=== PATIENT | male | born 1975 | race Caucasian/White ===

== ENCOUNTER 2023-12-16 14:20 | Emergency (ER) | payer OTHER ==
[2023-12-16] MEDS ORDERED: FAMOTIDINE 20 MG/2 ML VIAL IV ONE (14:51)
[2023-12-16] MEDS ORDERED: THIAMINE 200 MG/2 ML INJ ONE (14:51)
[2023-12-16] MEDS ORDERED: NA CHLORIDE 0.9% 1,000 ML ONE (14:51)
[2023-12-16] MEDS ORDERED: ONDANSETRON 4 MG/2 ML VIAL ONE (14:51)
--- NOTE | 2023-12-16 14:51 | RAD REPORT ---
EXAM DESCRIPTION: RAD - Chest Single View - 12/16/2023 2:46 pm CLINICAL HISTORY: COUGH COMPARISON: <Comparisons> FINDINGS: Lines: None. Lungs: No evidence of edema or pneumonia. Pleural: No significant pleural effusions or pneumothorax. Cardiac: The heart size is within normal limits. Mediastinum: Within normal limits. Bones: No acute fractures. Other: None IMPRESSION: No acute cardiopulmonary disease.
[2023-12-16 14:56] LABS: Absolute Lymphocytes (CBC) 0.2 K/uL (0.7-4.9); Absolute Monocytes 0.3 K/uL (0.1-1.3); Absolute Neutrophil 5.8 K/uL (1.8-8.0); Basophils % 0.2 % (0-1.3); Eosinophils % 0.4 % (0-4.4); Hematocrit 42.6 % (39.6-49.0); Hemoglobin 14.7 g/dL (13.6-17.9); Lymphocytes % 3.8 % (15.3-44.8); MCH 40.6 pg (27.0-35.0); MCHC 34.5 g/dL (32.0-36.0); MCV 117.8 fL (80-100); MPV 6.8 fL (7.6-11.3); Monocytes % 5.1 % (3.3-12.3); Neutrophils % 90.5 % (41.7-73.7); Platelets 106 thou/uL (152-406); RBC Red Blood Cell Count 3.62 M/uL (4.33-5.43); Red Cell Distribution Width 16.1 % (12.1-15.2)
[2023-12-16 15:00] LABS: Blood Morphology Comment NOTED (NOT SEEN); Macrocytosis 3+; PT Prothrombin Time 12.4 SECONDS (9.4-12.5); PTT, Activated Partial Thromb 34.6 SECONDS (24.3-36.9); Platelet Estimate DECR; Protime INR 1.13; White Blood Cell Scan OK (OK)
[2023-12-16 15:11] LABS: ALT/SGPT 113 U/L (16-61); AST/SGOT 181 U/L (15-37); Albumin 3.5 g/dL (3.4-5.0); Alkaline Phosphatase 80 U/L (45-117); Anion Gap 14.2 mEq/L (5.0-15.0); BUN Blood Urea Nitrogen 7 mg/dL (7-18); Bicarbonate 24 mEq/L (21-32); Bilirubin Direct 0.9 mg/dL (0-0.2); Bilirubin Indirect, Calculated 1.7 mg/dL (0.2-0.8); Bilirubin Total 2.6 mg/dL (0.2-1.0); Globulin 3.4 g/dL (2.3-3.5); Glomerular Filtration Rate 108 ml/min (=/>90); Glucose Level 114 mg/dL (74-106); Magnesium 1.2 mg/dL (1.6-2.4); NT PRO-BNP 51 pg/mL (<125); Potassium 3.2 mEq/L (3.5-5.1); Protein, Total 6.9 g/dL (6.4-8.2); Sodium Level 138 mEq/L (136-145); Troponin High Sensitivity 5.5 pg/mL (<58.9)
[2023-12-16] MEDS ORDERED: Magnesium Sulfate 2gm IVPB 2 G/50 ML BAG IV ONE (16:35)
--- NOTE | 2023-12-16 16:56 | EDPHYS ---
Physician Documentation [facility] Name: Sherry Troy Age: 48 yrs Sex: Male : 1975 Arrival Date: 12/16/2023 Time: 14:20 Bed 23 Private MD: BOYD Physician Olvin Leonard HPI: 12/15 16:15 This 48 yrs old Male presents to ER via EMS with complaints of michael Nausea/Vomiting. 16:15 The patient presents to the emergency department with nausea, vomiting, that is michael intermittent. 16:20 Possible causes: in the heat, heavy etoh. The symptoms are aggravated by alcohol, The michael symptoms are alleviated by remaining still. Associated signs and symptoms: Pertinent positives: nausea, vomiting. Severity of symptoms: At their worst the symptoms were moderate in the emergency department the symptoms are unchanged. The patient has experienced similar episodes in the past, a few times. 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 - Infectious Disease History:: Denies. - Social history:: Patient uses alcohol, on a daily basis. Smoking status: Patient denies any tobacco usage or history of. ROS: 16:18 Constitutional: Negative for fever, chills, and weight loss, Eyes: Negative for injury, michael pain, redness, and discharge, ENT: Negative for injury, pain, and discharge, Neck: Negative for injury, pain, and swelling, Cardiovascular: Negative for chest pain, palpitations, and edema, Respiratory: Negative for shortness of breath, cough, wheezing, and pleuritic chest pain, Back: Negative for injury and pain, : Negative for injury, bleeding, discharge, and swelling, MS/Extremity: Negative for injury and deformity, Skin: Negative for injury, rash, and discoloration, Neuro: Negative for headache, weakness, numbness, tingling, and seizure, Psych: Negative for depression, anxiety, suicide ideation, homicidal ideation, and hallucinations, Allergy/Immunology: Negative for hives, rash, and allergies, Endocrine: Negative for neck swelling, polydipsia, polyuria, polyphagia, and marked weight changes, Hematologic/Lymphatic: Negative for swollen nodes, abnormal bleeding, and unusual bruising, 16:18 Abdomen/GI: Positive for nausea and vomiting, Exam: 16:18 Constitutional: This is a well developed, well nourished patient who is awake, alert, michael and in no acute distress. Head/Face: Normocephalic, atraumatic. Eyes: Pupils equal round and reactive to light, extra-ocular motions intact. Lids and lashes normal. Conjunctiva and sclera are non-icteric and not injected. Cornea within normal limits. Periorbital areas with no swelling, redness, or edema. ENT: Nares patent. No nasal discharge, no septal abnormalities noted. Tympanic membranes are normal and external auditory canals are clear. Oropharynx with no redness, swelling, or masses, exudates, or evidence of obstruction, uvula midline. Mucous membranes moist. Neck: Trachea midline, no thyromegaly or masses palpated, and no cervical lymphadenopathy. Supple, full range of motion without nuchal rigidity, or vertebral point tenderness. No Meningismus. Chest/axilla: Normal chest wall appearance and motion. Nontender with no deformity. No lesions are appreciated. Cardiovascular: Regular rate and rhythm with a normal S1 and S2. No gallops, murmurs, or rubs. Normal PMI, no JVD. No pulse deficits. Respiratory: Lungs have equal breath sounds bilaterally, clear to auscultation and percussion. No rales, rhonchi or wheezes noted. No increased work of breathing, no retractions or nasal flaring. Abdomen/GI: Soft, non-tender, with normal bowel sounds. No distension or tympany. No guarding or rebound. No evidence of tenderness throughout. Back: No spinal tenderness. No costovertebral tenderness. Full range of motion. Male : Normal genitalia with no discharge or lesions. Skin: Warm, dry with normal turgor. Normal color with no rashes, no lesions, and no evidence of cellulitis. MS/ Extremity: Pulses equal, no cyanosis. Neurovascular intact. Full, normal range of motion. Neuro: Awake and alert, GCS 15, oriented to person, place, time, and situation. Cranial nerves II-XII grossly intact. Motor strength 5/5 in all extremities. Sensory grossly intact. Cerebellar exam normal. Normal gait. Psych: Awake, alert, with orientation to person, place and time. Behavior, mood, and affect are within normal limits. 16:18 ECG was reviewed by the Attending Physician. Vital Signs: 14:33 BP 168 / 70; Pulse 105; Resp 19; Temp 96.8; Pulse Ox 95% on R/A; iw 15:41 BP 121 / 78; Pulse 86; Resp 18; Pulse Ox 98% on R/A; ld1 MDM: 14:22 Patient medically screened. [facility] 12/15 14:24 Order name: Basic Metabolic Panel; Complete Time: 15:54 [facility] 12/15 14:24 Order name: CBC with Diff; Complete Time: 15:54 [facility] 12/15 14:24 Order name: LFT's; Complete Time: 15:54 [facility] 12/15 14:24 Order name: Magnesium; Complete Time: 15:54 [facility] 12/15 14:24 Order name: NT PRO-BNP; Complete Time: 15:54 [facility] 12/15 14:24 Order name: PT-INR; Complete Time: 15:54 [facility] 12/15 14:24 Order name: Troponin HS; Complete Time: 15:54 [facility] 12/15 14:24 Order name: Acetaminophen; Complete Time: 15:54 [facility] 12/15 14:24 Order name: ETOH Level; Complete Time: 15:54 [facility] 12/15 14:24 Order name: Ptt, Activated; Complete Time: 15:54 [facility] 12/15 14:24 Order name: Salicylate; Complete Time: 15:54 [facility] 12/15 14:24 Order name: Urinalysis w/ reflexes [facility] 12/15 14:24 Order name: Urine Drug Screen [facility] 12/15 15:00 Order name: CBC Smear Scan; Complete Time: 15:54 [facility] 12/15 17:25 Order name: Urine Culture [facility] 12/15 14:24 Order name: XRAY Chest (1 view); Complete Time: 15:54 [facility] 12/15 14:24 Order name: EKG; Complete Time: 14:25 [facility] 12/15 14:24 Order name: Cardiac monitoring; Complete Time: 14:39 [facility] 12/15 14:24 Order name: EKG - Nurse/Tech; Complete Time: 14:39 [facility] 12/15 14:24 Order name: IV Saline Lock; Complete Time: 14:38 [facility] 12/15 14:24 Order name: Labs collected and sent; Complete Time: 14:49 [facility] 12/15 14:24 Order name: O2 Per Protocol; Complete Time: 14:38 [facility] 12/15 14:24 Order name: O2 Sat Monitoring; Complete Time: 14:38 [facility] 12/15 14:24 Order name: Suicide Screening ([place]); Complete Time: 14:38 [facility] EC:18 Rate is 98 beats/min. Rhythm is regular. QRS [place] is Normal. AR interval is normal. QRS michael interval is normal. QT interval is normal. No Q waves. T waves are Normal. No ST changes noted. Clinical impression: NSR w/ Non-specific ST/T Changes and No evidence of ischemia. Interpreted by me. Reviewed by me. Administered Medications: 15:07 Drug: NS 0.9% IV 1000 ml IV at 1 bolus Per protocol; 1000 mL bolus Route: IV; Rate: 1 ld1 bolus; Site: left antecubital; 15:40 Follow up: IV Status: Completed infusion; IV Intake: 1000ml ld1 15:07 Drug: Thiamine IV 100 mg IV at per protocol once Route: IV; Rate: per protocol; Site: ld1 left antecubital; 15:07 Drug: Ondansetron IVP 4 mg IVP once; over 2 minutes Route: IVP; Site: left antecubital; ld1 15:07 Drug: Famotidine IVP 20 mg IVP once; dilute with 10 mL 0.9% NaCl; give over 2 minutes ld1 Route: IVP; Site: left antecubital; 15:40 Drug: Banana Bag - (Multivitamin IV 1 amp, NS 0.9% IV 1000 ml, Thiamine IV 100 mg, ld1 foLIC Acid IVPB 1 mg) IV at 500 ml/hr once Route: IV; Rate: 500 ml/hr; Site: left antecubital; 17:07 Drug: Magnesium Sulfate IVPB 2 grams IVPB once over 1 hrs Route: IVPB; Infused Over: 1 iw hrs; Site: left antecubital; 17:12 Drug: Potassium PO Effervescent Tablet 25 mEq PO once; dissolve in 4 ounces of water or iw juice Route: PO; Disposition Summary: 12/16/23 16:56 Discharge Ordered Notes: Location: Home michael Problem: new michael Symptoms: have improved michael Condition: Stable michael Diagnosis - Vomiting michael - Hypomagnesemia michael - Hypokalemia michael - Alcohol abuse michael - Alcohol dependence michael - Heat exhaustion, unspecified michael - Alcoholic cirrhosis of liver without ascites michael Followup: michael - With: Private Physician - When: 2 - 3 days - Reason: Recheck today's complaints, Continuance of care, Re-evaluation by your physician Followup: michael - With: Hunter Carroll DO - When: 2 - 3 days - Reason: Recheck today's complaints, Re-evaluation by your physician Followup: michael - With: Tiana Stahl MD - When: 2 - 3 days - Reason: Recheck today's complaints, Re-evaluation by your physician Discharge Instructions: - Discharge Summary Sheet michael - Alcohol Intoxication michael - Alcohol Use Disorder michael - Cirrhosis michael - Potassium Content of Foods michael - Hypomagnesemia michael - Nausea and Vomiting, Adult michael - Nausea and Vomiting, Adult, [id number] michael - Alcohol Abuse and Nutrition michael - Alcoholic Liver Disease, Ccoj-af-Reuk michael - Hypokalemia michael - Alcoholic Liver Disease michael - Vomiting, Adult michael - Alcohol Abuse and Dependence Information, Adult [facility] Forms: - Medication Reconciliation Form michael - Antibiotic Education michael - Prescription Opioid Use michael - Patient Portal Instructions [facility] - Leadership Thank You Letter [facility] Prescriptions: - ondansetron 8 mg Oral Tablet,disintegrating - take 1 tablet ORAL route every 8 to 12 hours for 5 days as needed for nausea michael and vomiting; 20 tablet; Refills: 0, Product Selection Permitted - Pepcid 20 mg Oral tablet - take 1 tablet ORAL route every 12 hours for 30 days; 60 tablet; Refills: 0, michael Product Selection Permitted - Potassium Chloride 20 meq Oral Packet - take 1 packet ORAL route once daily 1 packet in 6 (six) ounces of water or michael juice; Take after meal; 14 packet; Refills: 0, Product Selection Permitted Signatures: Dispatcher [employer] EDMS Olvin Leonard MD MD cha Williams, Irene, RN RN iw Tameka Cox RN RN ld1 Corrections: (The following items were deleted from the chart) 14:25 14:25 BASIC METABOLIC PANEL+C.LAB.BRZ ordered. EDMS EDMS 14:25 14:25 CBC+H.LAB.BRZ ordered. EDMS EDMS 14:25 14:25 HEPATIC FUNCTION+C.LAB.BRZ ordered. EDMS EDMS 14:25 14:25 MAGNESIUM+C.LAB.BRZ ordered. EDMS EDMS 14:25 14:25 PROBNP+C.LAB.BRZ ordered. EDMS EDMS 14:25 14:25 PROTIME (+INR)+COAG.LAB.BRZ ordered. EDMS EDMS 14:25 14:25 Troponin High Sensitivity+C.LAB.BRZ ordered. EDMS EDMS 14:25 14:25 ACETAMINOPHEN+C.LAB.BRZ ordered. EDMS EDMS 14:25 14:25 ETHANOL+C.LAB.BRZ ordered. EDMS EDMS 14:25 14:25 PTT, ACTIVATED+COAG.LAB.BRZ ordered. EDMS EDMS 14:25 14:25 SALICYLATE+C.LAB.BRZ ordered. EDMS EDMS 14:25 14:25 Urinalysis+U.LAB.BRZ ordered. EDMS EDMS 14:25 14:25 URINE DRUG SCREEN+UC.LAB.BRZ ordered. EDMS EDMS
--- NOTE | 2023-12-16 16:56 | ER ---
Nurse's Notes [facility] Name: Sherry Troy Age: 48 yrs Sex: Male : 1975 Arrival Date: 12/16/2023 Time: 14:20 Bed 23 Private MD: Diagnosis: Vomiting;Hypomagnesemia;Hypokalemia;Alcohol abuse;Alcohol dependence;Heat exhaustion, unspecified;Alcoholic cirrhosis of liver without ascites Presentation: 12/15 14:33 Chief complaint: EMS states: was out on a boat yesterday, today is having n/v , can't iw keep anything down. Coronavirus screen: At this time, the client does not indicate any symptoms associated with coronavirus-19. Ebola Screen: Patient negative for fever greater than or equal to 101.5 degrees Fahrenheit, and additional compatible Ebola Virus Disease symptoms Patient denies exposure to infectious person. Patient denies travel to an Ebola-affected area in the 21 days before illness onset. No symptoms or risks identified at this time. Initial Sepsis Screen: Does the patient meet any 2 criteria? No. Patient's initial sepsis screen is negative. Does the patient have a suspected source of infection? No. Patient's initial sepsis screen is negative. Risk Assessment: Do you want to hurt yourself or someone else? Patient reports no desire to harm self or others. 14:33 Method Of Arrival: EMS: [facility] iw 14:33 Acuity: MIRTHA 3 iw 14:36 Onset of symptoms was December 16, 2023. Care prior to arrival: IV initiated. 20 GA, in the iw left antecubital area, Glucose check: 91. 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 - Infectious Disease History:: Denies. - Social history:: Patient uses alcohol, on a daily basis. Smoking status: Patient denies any tobacco usage or history of. Screenin:41 [facility] ED Fall Risk Assessment (Adult) History of falling in the last 3 months, ld1 including since admission No falls in past 3 months (0 pts) Confusion or Disorientation No (0 pts) Intoxicated or Sedated No (0 pts) Impaired Gait No (0 pts) Mobility Assist Device Used No (0 pt) Altered Elimination No (0 pt) Score/Fall Risk Level 0 - 2 = Low Risk Oriented to surroundings, Maintained a safe environment, Educated pt \T\ family on fall prevention, incl call for assistance when getting out of bed, Assessed \T\ reinforced patient's understanding of fall precautions, Provided non-skid footwear, Hourly rounding (assess needs \T\ fall precautionary measures) done, Used ambulatory aids as needed (educated on \T\ assisted with), Used gait belt as appropriate. Abuse screen: Denies threats or abuse. Denies injuries from another. Nutritional screening: No deficits noted. Tuberculosis screening: No symptoms or risk factors identified. Assessment: 15:41 General: Appears in no apparent distress. comfortable, Behavior is calm, cooperative, ld1 appropriate for age. Pain: Denies pain. Neuro: Level of Consciousness is awake, alert, obeys commands, Oriented to person, place, time, situation. Cardiovascular: Capillary refill < 3 seconds Patient's skin is warm and dry. Rhythm is sinus rhythm. Respiratory: Airway is patent Respiratory effort is even, unlabored. GI: Abdomen is round non-distended, Reports nausea, vomiting. : No signs and/or symptoms were reported regarding the genitourinary system. EENT: No deficits noted. Derm: No signs and/or symptoms reported regarding the dermatologic system. Musculoskeletal: No signs and/or symptoms reported regarding the musculoskeletal system. Vital Signs: 14:33 BP 168 / 70; Pulse 105; Resp 19; Temp 96.8; Pulse Ox 95% on R/A; iw 15:41 BP 121 / 78; Pulse 86; Resp 18; Pulse Ox 98% on R/A; ld1 ED Course: 14:22 Patient arrived in ED. iw 14:22 Olvin Leonard MD is Attending Physician. michael 14:35 Triage completed. iw 14:36 Arm band placed on. iw 14:36 Maintain EMS IV. Dressing intact. Good blood return noted. Site clean \T\ dry. Gauge \T\ iw site: 20 LAC. 14:44 Initial lab(s) drawn, by me, sent to lab. iw 14:48 XRAY Chest (1 view) In Process Unspecified. EDMS 14:48 Tameka Cox, RADAH is Primary Nurse. ld1 15:41 Patient has correct armband on for positive identification. Placed in gown. Bed in low ld1 position. Call light in reach. Side rails up X2. hospital monitor on. Pulse ox on. NIBP on. Door closed. Noise minimized. Warm blanket given. 15:41 No provider procedures requiring assistance completed. ld1 16:55 Hunter Carroll DO is Referral Physician. michael 16:55 Tiana Stahl MD is Referral Physician. michael 17:29 IV discontinued, intact, bleeding controlled, No redness/swelling at site. iw Administered Medications: 15:07 Drug: NS 0.9% IV 1000 ml IV at 1 bolus Per protocol; 1000 mL bolus Route: IV; Rate: 1 ld1 bolus; Site: left antecubital; 15:40 Follow up: IV Status: Completed infusion; IV Intake: 1000ml ld1 15:07 Drug: Thiamine IV 100 mg IV at per protocol once Route: IV; Rate: per protocol; Site: ld1 left antecubital; 15:07 Drug: Ondansetron IVP 4 mg IVP once; over 2 minutes Route: IVP; Site: left antecubital; ld1 15:07 Drug: Famotidine IVP 20 mg IVP once; dilute with 10 mL 0.9% NaCl; give over 2 minutes ld1 Route: IVP; Site: left antecubital; 15:40 Drug: Banana Bag - (Multivitamin IV 1 amp, NS 0.9% IV 1000 ml, Thiamine IV 100 mg, ld1 foLIC Acid IVPB 1 mg) IV at 500 ml/hr once Route: IV; Rate: 500 ml/hr; Site: left antecubital; 17:07 Drug: Magnesium Sulfate IVPB 2 grams IVPB once over 1 hrs Route: IVPB; Infused Over: 1 iw hrs; Site: left antecubital; 17:12 Drug: Potassium PO Effervescent Tablet 25 mEq PO once; dissolve in 4 ounces of water or iw juice Route: PO; Medication: 15:41 VIS not applicable for this client. ld1 Intake: 15:40 IV: 1000ml; Total: 1000ml. ld1 Outcome: 16:56 Discharge ordered by . michael 17:29 Discharged to home ambulatory, with family, iw 17:29 Condition: stable 17:29 Discharge instructions given to patient, family, Instructed on discharge instructions, follow up and referral plans. medication usage, Demonstrated understanding of instructions, follow-up care, medications, Prescriptions given X 3, 17:30 Patient left the ED. iw Signatures: Dispatcher [employer] Olvin Salazar MD MD cha Williams, Irene, RN RN iw Tameka Cox RN RN ld1
[2023-12-16] MEDS ORDERED: POTASSIUM 25 MEQ EFFERV TAB ONE (17:10)
[2023-12-16 17:20] LABS: Specific Gravity 1.022 (1.005-1.030); Sqamous Epithelial None Seen /HPF (None Seen); Urine Bacteria <20 /HPF (<20); Urine Bilirubin NEGATIVE (Negative); Urine Blood Negative (Negative); Urine Clarity Clear (Clear); Urine Color Light-Orange (Yellow); Urine Culture Reflex Order REFLEXED; Urine Glucose NEGATIVE (Negative); Urine Ketones TRACE (Negative); Urine Microscopic Reflex YN ORDER UMIC; Urine Mucus 2+ /HPF (None Seen); Urine Nitrite NEGATIVE (Negative); Urine Protein TRACE (Negative); Urine RBC <5 /HPF (None Seen); Urine Urobilinogen 1+ (Normal)
[2023-12-16 17:33] LABS: Barbiturates NEGATIVE (NEGATIVE); Benzodiazepines NEGATIVE (NEGATIVE); Cocaine NEGATIVE (NEGATIVE); METHAMPHETAM NEGATIVE (NEGATIVE); Methadone NEGATIVE (NEGATIVE); Opiates NEGATIVE (NEGATIVE); Phencyclidine NEGATIVE (NEGATIVE); THC Cannibis NEGATIVE (NEGATIVE)
[2023-12-16 18:05] VITALS: BP 121/78; TEMP 96.8; O2SAT 98
--- NOTE | 2023-12-17 14:09 | EKG ---
Test Date: 2023-12-16 Test Time: 14:47:27 Dog Raiser: Sweetie LARSEN MEASUREMENT RESULTS: Intervals: Rate: 98 NC: 126 QRSD: 76 QT: 362 QTc: 462 [place]: P: 54 NC: 126 QRS: 65 T: 41 INTERPRETIVE STATEMENTS: Normal sinus rhythm Normal ECG No previous ECG available for comparison Electronically Signed On 12-17-23 14:07:02 CDT by Holden Abreu
== END 2023-12-16 17:30 | disposition home or self-care (01) ==
LOC: ER 14:20
DX: E83.42 Hypomagnesemia (principal); E87.6 Hypokalemia; F10.20 Alcohol dependence, uncomplicated; T67.5XXA Heat exhaustion, unspecified, initial encounter; K70.30 Alcoholic cirrhosis of liver without ascites
CPT/HCPCS: 87088; 85025; 81001; 87086; 80048; 36415; 83735; 85610; 80076; 85730; 84484; 83880; 80307; 71045; 80143; 80179; 82077; J3411 ×2; J3475; J2405; J7030 ×2; 93005; 96361; 96374; 96375; 99285